=== PATIENT | female | born 1940 | race Caucasian/White ===

== ENCOUNTER → 2017-01-08 | Outpatient (CLI) | payer OTHER | LOC: FIMAGING 08:52 | PROVIDERS: ATTEND Family Medicine | DX: Z12.31 Encounter for screening mammogram for malignant neoplasm of breast (principal) | CPT/HCPCS: G0202 ==

== ENCOUNTER 2017-02-22 11:52 | Emergency (ER) | payer OTHER ==
[2017-02-22 12:02] VITALS: TEMP 97.7
--- NOTE | 2017-02-22 12:11 | CPEKG ---
Heart Rate: 98 RR Interval: 612 P-R Interval: 144 QRSD Interval: 92 QT Interval: 348 QTC Interval: 445 P Courtland: 70 QRS Courtland: 75 T Wave Courtland: 25 EKG Severity - ABNORMAL ECG - EKG Impression: SINUS RHYTHM EKG Impression: VENTRICULAR PREMATURE COMPLEX EKG Impression: LEFT ATRIAL ABNORMALITY EKG Impression: PROBABLE LEFT VENTRICULAR HYPERTROPHY Electronically Signed By: Ismael Aj 22-Feb-2017 15:57:04
[2017-02-22] MEDS ORDERED: NS 1,000 ML IV ONE (13:08)
--- NOTE | 2017-02-22 13:08 | EDPHY ---
H & P Time Seen by Provider: 02/22/17 12:44 HPI/ROS: Chief complaint. Near syncope HPI. 76-year-old female presents emergency department with cough for 5 days. 4 days ago she was lightheaded and felt like she could pass out. It was better with sitting down. She has had similar symptoms previously occurring approximately 4 times per year with exercise but not with just working around the home. She also had never had multiple episodes on the same day though these lightheaded episodes occurred over about 1 hr every time she stood up. She has had no symptoms since. However she has had fever and chills and decreased appetite. Her is sick with similar symptoms. Her symptoms are worse in the evening. She has some right-sided chest discomfort that she describes as "it hurts ". No radiation. Hurts to move, deep breathe and is constant but only occurring at night. It is not occurring now. ROS Constitutional. Fever and chills Eyes. no problems with vision ENT. Congestion Cardiovascular. Right-sided chest pain at night Respiratory. Cough Abdominal. no abdominal pain, no nausea/vomiting, no diarrhea . no problems urinating MS. no calf pain/swelling, no neck/back pain, no joint pain Skin. no rash Lymph. no swollen glands Neuro. no headache, no dizziness, no difficulty walking or with speech Past Medical/Surgical History: Hypertension, bladder surgery, hysterectomy Social History: , nonsmoker, no alcohol Smoking Status: Never smoked Physical Exam: General Appearance: Alert pleasant well-developed female mild distress vital signs significant for heart rate of 99 Eyes: Pupils equal and round no pallor or injection. ENT, Mouth: Mucous membranes are moist. Respiratory: There are no retractions, lungs are clear to auscultation. Cardiovascular: Regular rate and rhythm. Gastrointestinal: Abdomen is soft and nontender, no masses, bowel sounds normal. Neurological: Awake and alert, sensory and motor exams grossly normal. Skin: Warm and dry, no rashes. Musculoskeletal: Neck is supple nontender. Extremities symmetrical, full range of motion. Psychiatric: Patient is oriented X 3, there is no agitation. Constitutional: Initial Vital Signs Temperature (C) 36.5 C 02/22/17 11:59 Heart Rate 99 02/22/17 11:59 Respiratory Rate 20 02/22/17 11:59 Blood Pressure 133/78 H 02/22/17 11:59 O2 Sat (%) 95 02/22/17 11:59 O2 Delivery Mode Room Air Allergies/Adverse Reactions: Sulfa (Sulfonamide Antibiotics) Allergy (Verified 02/22/17 11:56) Home Medications: Medication Instructions Recorded ASPIRIN 02/22/17 Atorvastatin Calcium 02/22/17 Azithromycin [Zithromax] 250 mg PO DAILY #6 tab 02/22/17 Lisinopril 02/22/17 RESTORIL 02/22/17 Vitamins And Supplements 02/22/17 Medical Decision Making - Diagnostics EKG Interpretation: EKG interpreted by me shows normal sinus rhythm normal interval and axis. QRS is otherwise unremarkable. There is no significant ST elevation or depression. There is 1 PVC. The rate is 98 Imaging Results: Imaging Impressions Chest X-Ray 02/22/17 13:09 Impression: Mild underlying bronchitis. Possible early early infiltrate in the right middle lobe. Recommend following to clear. Procedures: IV normal saline, monitor ED Course/Re-evaluation: Re-evaluation 2:20 p.m.. Patient is stable. Patient, , and I discussed imaging, EKG, lab results. We discussed treatment plan including criteria for return importance of follow-up further evaluation. She expresses understanding and agreement. She is comfortable with this plan. Heart rate is still about 95 however she is only received about 50 mL as from her 1st IV normal saline bag Intravenous Rocephin On re-evaluation patient is stable. She feels well enough to go home. She is offered admission but feels well to be treated as an outpatient Differential Diagnosis: I considered acute coronary syndrome, pneumonia, influenza. - Data Points Laboratory Results: Laboratory Results 02/22/17 12:25 02/22/17 12:25 02/22/17 02/22/17 12:25 12:25 WBC 15.37 10^3/uL H 10^3/uL (3.80-9.50) RBC 4.49 10^6/uL 10^6/uL (4.18-5.33) Hgb 13.5 g/dL g/dL (12.6-16.3) Hct 40.3 % % (38.0-47.0) MCV 89.8 fL fL (81.5-99.8) MCH 30.1 pg pg (27.9-34.1) MCHC 33.5 g/dL g/dL (32.4-36.7) RDW 12.4 % % (11.5-15.2) Plt Count 234 10^3/uL 10^3/uL (150-400) MPV 9.8 fL fL (8.7-11.7) Neut % (Auto) 75.6 % H % (39.3-74.2) Lymph % (Auto) 10.0 % L % (15.0-45.0) Dyer % (Auto) 13.4 % H % (4.5-13.0) Eos % (Auto) 0.1 % L % (0.6-7.6) Baso % (Auto) 0.4 % % (0.3-1.7) Nucleat RBC Rel Count 0.0 % % (0.0-0.2) Absolute Neuts (auto) 11.64 10^3/uL H 10^3/uL (1.70-6.50) Absolute Lymphs (auto) 1.53 10^3/uL 10^3/uL (1.00-3.00) Absolute Monos (auto) 2.06 10^3/uL H 10^3/uL (0.30-0.80) Absolute Eos (auto) 0.01 10^3/uL L 10^3/uL (0.03-0.40) Absolute Basos (auto) 0.06 10^3/uL 10^3/uL (0.02-0.10) Absolute Nucleated RBC 0.00 10^3/uL 10^3/uL (0-0.01) Immature Gran % 0.5 % % (0.0-1.1) Immature Gran # 0.07 10^3/uL 10^3/uL (0.00-0.10) Sodium 140 mEq/L mEq/L (135-145) Potassium 3.6 mEq/L mEq/L (3.5-5.2) Chloride 102 mEq/L mEq/L (97-110) Carbon Dioxide 25 mEq/l mEq/l (22-31) Anion Gap 13 mEq/L mEq/L (8-16) BUN 14 mg/dL mg/dL (7-23) Creatinine 0.6 mg/dL mg/dL (0.6-1.0) Estimated GFR > 60 Glucose 111 mg/dL H mg/dL (70-100) Calcium 9.2 mg/dL mg/dL (8.5-10.4) Troponin I < 0.012 ng/mL ng/mL (0.000-0.034) Medications Given: Discontinued Medications Sodium Chloride (Ns) 1,000 mls @ 0 mls/hr IV EDNOW ONE; Wide Open PRN Reason: Protocol Stop: 02/22/17 13:09 Last Admin: 02/22/17 13:38 Dose: 1,000 mls Ceftriaxone Sodium/Dextrose (Rocephin 1 Gm (Premix)) 50 mls @ 100 mls/hr IV EDNOW ONE PRN Reason: Protocol Stop: 02/22/17 14:53 Last Admin: 02/22/17 14:52 Dose: 50 mls Departure - Departure Disposition: Home, Routine, Self-Care Clinical Impression: Pneumonia Qualifiers: Pneumonia type: due to unspecified organism Laterality: right Lung location: middle lobe of lung Qualified Code(s): J18.1 - Lobar pneumonia, unspecified organism Condition: Good Instructions: Community Acquired Pneumonia (ED) Additional Instructions: Drink plenty of fluids and stay hydrated. Ibuprofen 600 mg every 6 hr as needed for fever. Tylenol 1000 mg every 4- 6 hr as needed for fever. Zithromax is antibiotic. Return for worsening symptoms. Recheck in 2 days if not improving Referrals: Lillian Mcneil MD [Primary Care Provider] - 2-3 days, if not improved Prescriptions: Azithromycin [Zithromax] 250 mg PO DAILY #6 tab
[2017-02-22 13:15] LABS: PLATELET COUNT 234 10^3/uL (150-400)
[2017-02-22 13:39] VITALS: RESP 18
[2017-02-22 14:53] VITALS: BP 125/76; PULSE 93; O2SAT 95
== END 2017-02-22 15:35 | disposition home or self-care (01) ==
DX: J18.9 Pneumonia, unspecified organism (principal); I10 Essential (primary) hypertension; E86.9 Volume depletion, unspecified; Z79.82 Long term (current) use of aspirin
CPT/HCPCS: 71045; 93005; 96361; 96365; 99285; J0696

== ENCOUNTER → 2018-05-16 | Outpatient (CLI) | payer OTHER | LOC: BHFA 09:00 | PROVIDERS: ATTEND Internal Medicine Cardiovascular Disease | DX: R94.31 Abnormal electrocardiogram [ECG] [EKG] (principal); G45.9 Transient cerebral ischemic attack, unspecified | CPT/HCPCS: 78452; 93017; A9500 ==

== ENCOUNTER → 2018-06-07 | Outpatient (CLI) | payer OTHER ==
--- NOTE | 2018-06-07 16:46 | ECHO ---
[email or web address] [address] [address] Main: [phone] Echocardiography Examination Transthoracic Name: JAZMYNE PINTO MR#: [id number] Study Date: 06/07/2018 Study Time: 02:10 PM Date of : 1940 Age: 78 year(s) Height: 160 cm (63 in.) Weight: 52.62 kg (116 lb.) BSA: 1.53 m2 Gender: Female Examination: Echo Contrast: Image Quality: Adequate Rhythm: Heart Rate: BP: / Indication: Supraventricular Tachycardia Procedure Staff Referring Physician: Digester Operator Helper: Asha Rod [facility] Reading Physician: Jack Mcdaniel MD Requesting Provider: Ordering Physician: Richardson Miranda Indication: Supraventricular Tachycardia Measurements Chambers AV/MV Label Value Normal Value Label Value Normal Value LVOTd 1.7 cm (1.8cm - 2cm) AV PGmean 10 mmHg LVOT VTI 23.3 cm (18cm - 22cm) AV Vmax 1.99 m/s LVDd, 2D 3.6 cm (3.9cm - 5.3cm) ELIZABETH (VTI) 1.4 cm2 LVDs, 2D 2.3 cm (2.1cm - 4cm) MV E Vmax 0.7 m/s IVSd, 2D 1 cm (0.6cm - 1.1cm) MV A Vmax 1.01 m/s LVPWd, 2D 0.9 cm MV E/A 0.69 LVEF, 2D 66 % (54% - 74%) MV E/E' lateral 6.9 LVOT PGmean 3 mmHg MV E/E' septal 10.1 (0.45 - 1.25) LVOT Vmean 0.85 m/s MV DT 197 ms RVDd, 2D 3.3 cm (1.9cm - 3.8cm) MV E' septal 0.07 m/s LA Volume, BP 35 ml (22ml - 52ml) MV PHT 0.06 s LADs, 2D 2.9 cm (2.7cm - 3.8cm) MVA PHT 3.7 cm2 LAESV index, BP 22.9 ml/m2 MV E' lateral 0.1 m/s RA Area 12.8 cm2 MV E/E' mean 8.24 Additional Vessels MV PHT 60 ms Label Value Normal Value MV E' mean 0.08 m/s AoAsc 3.3 cm TV/PV AoRoot, 2D 2.8 cm (1.4cm - 2.6cm) Label Value Normal Value IVC 1.2 cm (1.2cm - 2.3cm) RA Pressure 5 mmHg Patient: JAZMYNE PINTO Study Date: 06/07/2018 Page 1 of 2 02:10 PM RVSP 32 mmHg TR Pmax 27 mmHg TR Vmax 2.58 m/s PV PGmax 4 mmHg PV Vmax, Caliper 1 m/s (0.6m/s - 0.9m/s) Conclusions The heart is structurally normal with age appropriate changes of the heart valves without significant regurgitation or stenosis. The patient is in sinus rhythm throughout most of the study. Incidentally noted were mutiple and frequent PAC's. Findings Left Ventricle: Left ventricle is normal in size. Normal global systolic left ventricular function. EF range is estimated at 60 % - 65 %. Left ventricle wall thickness is normal. There are no regional wall motion abnormalities. Left ventricular diastolic function parameters are normal. No LV hypertrophy. Right Ventricle: Normal size right ventricle. Right ventricular systolic function is normal. Left Atrium: The left atrium is normal in size. Right Atrium: The right atrium is normal in size. Mitral Valve: Mitral valve appears structurally normal. Mild mitral regurgitation. No mitral valve stenosis. There is minimal mitral thickening. Aortic Valve: Aortic leaflets are structurally normal. Trivial aortic regurgitation is present. There is trivial aortic stenosis. Aortic leaflets exhibit mild calcification. Tricuspid Valve: Tricuspid valve leaflets are structurally normal. Mild tricuspid regurgitation. No tricuspid valve stenosis. Right Ventricular systolic pressure is measured at 32 mmHg. Pulmonary artery pressure normal. Pulmonic Valve: Pulmonic leaflets are normal in appearance. No significant pulmonic valve regurgitation is evident. Aorta: The aortic root size in 2D measures 2.8 cm. The ascending aorta measures 3.3 cm. Aorta Measurements AoRoot, 2D is 2.8 cm. IVC: The inferior vena cava is normal in size. Exam Details Procedure Ordered: Echo Procedure Status: Routine study Image Quality: Adequate Facility Location: CVC/Recovery (No Signature Object) Patient: JAZMYNE PINTO Study Date: 06/07/2018 Page 2 of 2 02:10 PM [id number]
== END ==
LOC: FCP 13:47
PROVIDERS: ATTEND Internal Medicine Cardiovascular Disease
DX: I07.1 Rheumatic tricuspid insufficiency (principal); I34.0 Nonrheumatic mitral (valve) insufficiency

== ENCOUNTER 2018-07-01 06:57 | Observation (INO) | payer OTHER ==
[2018-07-01] MEDS ORDERED: NS 1,000 ML IV ONE (07:02)
[2018-07-01 07:43] LABS: PLATELET COUNT 213 10^3/uL (150-400)
[2018-07-01 07:52] LABS: INR 0.99 (0.83-1.16); PROTIME(PATIENT) 12.7 SEC (12.0-15.0)
[2018-07-01] MEDS ORDERED: LIDOCAINE 1% 300 MG/30 ML SDV ONE (08:11)
[2018-07-01] MEDS ORDERED: BUPIVACAINE 0.5% 30 ML SDV ONE (08:11)
[2018-07-01] MEDS ORDERED: HEPARIN 10,000 UNIT/10 ML MDV (1,000 UNIT/ML) ONE (08:11)
[2018-07-01] MEDS ORDERED: MIDAZOLAM 2 MG/2 ML VIAL IVP ONE (08:12)
[2018-07-01] MEDS ORDERED: ISOPROTERENOL HCL/D5W 0.2 MG/50 ML BAG IV ONE (08:12)
--- NOTE | 2018-07-01 08:12 | PDANEPAE ---
ANE History of Present Illness ep svt ANE Past Medical History - Cardiovascular History Hx Hypertension: Yes Hx Arrhythmias: Yes Hx Chest Pain: No Hx Coronary Artery / Peripheral Vascular Disease: No Hx CHF / Valvular Disease: No Hx Palpitations: No - Pulmonary History Hx COPD: No Hx Asthma/Reactive Airway Disease: No Hx Recent Upper Respiratory Infection: No Hx Oxygen in Use at Home: No Hx Sleep Apnea: Yes - Neurologic History Hx Cerebrovascular Accident: No Hx Seizures: No Hx Dementia: No - Endocrine History Hx Diabetes: No Hypothyroid: No Hyperthyroid: No Obesity: no - Renal History Hx Renal Disorders: No - Liver History Hx Hepatic Disorders: No Hepatic History Comment: elevated bili - Neurological & Psychiatric Hx Hx Neurological and Psychiatric Disorders: No ANE Review of Systems Review of Systems: - Exercise capacity Exercise capacity: >=4 METS ANE Patient History - Allergies Allergies/Adverse Reactions: Sulfa (Sulfonamide Antibiotics) Allergy (Verified 02/22/17 11:56) - Home Medications Home Medications: Aspirin [Aspirin 81mg (*)] 81 mg PO DAILY 06/24/18 [Last Taken 06/30/18] Atorvastatin Calcium [Lipitor 10 mg (*)] 10 mg PO DAILY 06/24/18 [Last Taken ] Estradiol [Estrace Vaginal (*)] 1 vanessa VG Q3D 06/24/18 [Last Taken Unknown] Herbals/Supplements -Info Only 1 ea PO DAILY 06/24/18 [Last Taken 06/30/18] Ibuprofen [Motrin (*)] 200 mg PO DAILY PRN 06/24/18 [Last Taken Unknown] Lisinopril/Hctz 20/12.5MG [Zestoretic/Prinzide 20/12.5MG (*)] 1 ea PO DAILY [Last Taken 06/30/18] Metoprolol Tartrate [Lopressor 25 mg (*)] 25 mg PO BID 06/24/18 [Last Taken ] - NPO status NPO Status: no food or drink >8 hours - Anes Hx Anes Hx: no prior problems - Smoking Hx Smoking Status: Never smoked ANE Labs/Vital Signs - Labs Result Diagrams: 07/01/18 07:20 07/01/18 07:20 - Vital Signs Height: 160.02 cm Weight: 52.163 kg ANE Physical Exam - Airway Mallampati Score: Class 2 Mouth exam: normal dental/mouth exam - Pulmonary Pulmonary: no respiratory distress - Cardiovascular Cardiovascular: regular rate and rhythym - ASA Status ASA Status: II ANE Anesthesia Plan Anesthesia Plan: general endotracheal anesthesia, GA w LMA
[2018-07-01] MEDS ORDERED: PROPOFOL 200 MG/20 ML VIAL ONE (08:23)
[2018-07-01] MEDS ORDERED: fentaNYL 100 MCG/2 ML INJ ONE (08:23)
[2018-07-01] MEDS ORDERED: DEXAMETHASONE 4 MG/ML VIAL ONE (08:24)
[2018-07-01] MEDS ORDERED: LIDOCAINE 2% 2 ML INJ ONE ×3 (08:24)
[2018-07-01] MEDS ORDERED: ONDANSETRON 4 MG/2 ML VIAL ONE (08:24)
--- NOTE | 2018-07-01 08:36 | PDGENHP ---
History & Physical Chief Complaint: SVT History of Present Illness: SVT with increasing frequency over the past several months, rates up to 231bpm Relevant Physical Exam: A&Ox4, no apparent distress, regular rate and rhythm, S1 , S2, pulses 2+ bilaterally, no edema Cardiorespiratory Assessment: Proceed with SVT ablation as planned for today
[2018-07-01] MEDS ORDERED: PHENYLEPHRINE 10 MG/ML SDV ONE (09:06)
[2018-07-01] MEDS ORDERED: ePHEDrine SULFATE 25 MG/5 ML SYR ONE (09:06)
[2018-07-01] MEDS ORDERED: ROCURONIUM 50 MG/5 ML VIAL ONE ×2 (11:19→11:20)
[2018-07-01] MEDS ORDERED: SUGAMMADEX SODIUM 200 MG/2 ML VIAL IVP ONE (11:53)
[2018-07-01] MEDS ORDERED: IBUPROFEN 200 MG TAB PO PRN (12:27)
--- NOTE | 2018-07-01 12:32 | EPPROC ---
Electrophysiology Procedure Note: ELECTROPHYSIOLOGIC STUDY AND CATHETER MEDIATED ABLATION RF+CRYO OF SLOW/FAST AV SAMARIA REENTRY TACHYCARDIA PROCEDURES PERFORMED: 90626-83 EP evaluation with RA/RV/LA pace/record, with arrhythmia induction 19252-32 EP evaluation with RA/RV pace record, insert/reposition catheter, with arrhythmia induction 39375 Intracardiac catheter ablation, SVT arrhythmogenic focus 75538 3D mapping Fluoroscopy INDICATION: SVT 230 BPM PROCEDURE: Catheters & Anesthesia: The patient arrived in the Electrophysiology Laboratory in the fasting state. The right clavicular region, right groin, and left groin area were prepped and draped in the usual sterile manner. Anesthesiologist Dr. Hank Dial administered general anesthesia. Appropriate non-invasive blood pressure, pulse oximetry and end-tidal CO2 monitoring was established. All catheters were placed percutaneously using the modified Seldinger technique , and advanced into position under fluoroscopic guidance. One #6 Austrian hexapolar non-deflectable electrode catheter was inserted into the right atrial appendage via the left femoral vein (2mm spacing; except the proximal ring which was 25cm from the tip used for unipolar recordings). One #7 Austrian deflectable octapolar electrode catheter was advanced to the His-bundle position via the left femoral vein (2mm spacing). One #7 Austrian deflectable quadrapolar catheter was advanced to the anteroseptal right ventricle via the right femoral vein. One #7 Austrian deflectable catheter with 10 pairs of electrodes was placed via the right femoral vein into the coronary sinus. Heparin was given to keep ACT > 200 s. Programmed stimulation was performed from the right atrium, right ventricle and coronary sinus (left atrium). Parahisian pacing demonstrated constant H-A interval with changing V-A intervals and stimulus-A intervals during capture and loss of capture of proximal RBB proving retrograde conduction over AV node. AVNRT was induced easily during infusion of isoproterenol 2-4 mcg/min. Ventricular extrastimuli delivered during tachycardia without altering antegrade His bundle activation did not advance next atrial potential, indicating that the tachycardia was not utilizing an accessory pathway for retrograde conduction. VA interval was 0 ms. Post entrainment of the tachycardia from the ventricle, there was VAHV response. Mapping of the right atrium and coronary sinus during AVNRT identified earliest atrial activation above the tendon of Mary at a level slightly posterior to the level of the His bundle, consistent with retrograde conduction over the fast AV samaria pathway. A #8 Austrian deflectable quadrapolar electrode catheter (2mm-5mm-2mm spacing) with 4 mm tip electrode and sensor for the 3D mapping Carto system was advanced to the right atrium. 3 D mapping of the inter-atrial septum and coronary sinus was performed and location of the AV node was marked. A Mobi sheath was used. RF applications were delivered to the region between the tricuspid annulus and the coronary sinus ostium, at the level of the upper edge of the coronary sinus ostium. Radiofrequency applications were also delivered along the roof of the proximal coronary sinus. Junctional rhythm occurred during all of the RF applications. However AVNRT continued to be inducible. 6 mm cryo catheter was placed and cryolesions delivered to the roof of CS and low midseptal TA. This rendered AVNRT non inducible and there was no conduction over slow AV samaria pathway. Ablation was difficult due to small triangle of Hammonds and funnel shaped CS ostium. Programmed stimulation was continued post ablation at baseline and during graded doses of isoproterenol upto 4mcg/min. Sustained AVNRT was not inducible. There were no echo beats. The catheters were removed. Sheaths were removed in the EP lab after applying subcutaneous purse string suture. The patient was transferred to the cardiovascular holding area in stable condition. There were no apparent complications. Results: A. Spontaneous Intervals: Pre ablation SCL 740 ms AH 65 ms HV 40 ms Post ablation SCL 630 ms AH 55 ms HV 40 ms B. Antegrade AV samaria function (decremental pacing) Pre ablation FPERP 360 ms 350 ms WBB CL 340 ms Post ablation FPERP 390 ms WBB CL 380 ms C. Retrograde AV samaria function (decremental pacing) Pre ablation FPERP 480 ms WBB CL 470 ms D. Arrhythmias: Sustained slow/fast AVNRT Cycle length 290 ms, AH interval 250 ms, LAST interval 40 ms VA interval 0 ms CONCLUSIONS 1. 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 ( Slow/fast AVNRT). 2. Successful ablation (RF+CRYO) of the slow AV samaria pathway with elimination of 1:1 antegrade conduction over the slow AV samaria pathway, all retrograde conduction over the slow AV samaria pathway and the inducibility of AVNRT. 3. Small triangle of Hammonds and funnel shaped CS ostium. 4. No complications. Patient Problems: Problems Problem Status Onset SVT (supraventricular tachycardia) Acute
[2018-07-01] MEDS ORDERED: fentaNYL 100 MCG/2 ML INJ IVP PRN (12:34)
[2018-07-01] MEDS ORDERED: ONDANSETRON 4 MG/2 ML VIAL IVP PRN (12:34)
[2018-07-01] MEDS ORDERED: LR 500 ML IV PRN (12:34)
[2018-07-01] MEDS ORDERED: ALBUTEROL 3 ML DEYVIAL IH PRN (12:34)
[2018-07-01] MEDS ORDERED: NALOXONE HCL 0.4 MG/ML INJ IVP PRN (12:34)
--- NOTE | 2018-07-01 12:35 | POSTANESTH ---
Post Anesthetic Evaluation Cardiovascular Status: Normal, Stable Respiratory Status: Normal, Stable Level of Consciousness/Mental Status: Can Participate in Eval Pain Control: Adequate, Prn Tx Ordered Nausea/Vomiting Control: Adequate, Prn Tx Ordered Complications Possibly Related to Anesthesia: None Noted
[2018-07-02 05:27] LABS: PLATELET COUNT 183 10^3/uL (150-400)
[2018-07-02 07:51] VITALS: BP 122/69
[2018-07-02] MEDS ORDERED: ATORVASTATIN CALCIUM 10 MG TAB PO SCH (09:00)
[2018-07-02] MEDS ORDERED: LISINOPRIL/HCTZ 20/12.5MG 1 EA TAB PO SCH (09:00)
[2018-07-02] MEDS ORDERED: ASPIRIN 81 MG CHEWABLE TAB PO SCH (09:00)
--- NOTE | 2018-07-02 10:21 | ASDISCHSUM ---
Discharge Information Plan Status:Home with No Needs Medically Cleared to Leave:07/02/2018 Discharge Date:07/02/2018 CM D/C Disposition:Home, Routine, Self-Care ADT D/C Disposition:Home, Routine, Self-Care Projected Discharge Date:07/02/2018 Transportation at D/C: Discharge Delay Reason: Follow-Up Date:07/02/2018 Discharge Slot: Final Diagnosis: Placement Information Patient Contact Information Contact Name:ROSARIO Relationship: Address:[address] [place] Work Phone: City:[facility] Phone: State/Zip Code:[place] [address] Email: Financial Information Financial Class:Medicare Primary Plan Desc:MEDICARE OUTPATIENT Primary Plan Number:[id number] Secondary Plan Desc:[facility] Secondary Plan Number:[id number] Assessment Information LACE LACE Length of stay for Answers: 1 day current admission Acuity / Level of Answers: No Care: Did the patient have an inpatient admission? Comorbidities - select Answers: Other Notes: HTN all that apply # of Emergency department Answers: 0 visits in the last 6 months Score: 2 Date Signed: 07/02/2018 10:20 AM Electronically Signed By:Shabnam Vu RN Intervention Information Intervention Type:*SUSHIL-Signed Date of Service:07/02/2018 09:56 AM Patient Type:Observation Staff Member:Samantha Velez Hours: Discipline: Severity: Comment:
--- NOTE | 2018-07-02 10:52 | GDS ---
[f rep st] DISCHARGE SUMMARY SUPERVISING ACROBATIC RIGGER: Sharif Grey MD. ADMISSION DIAGNOSIS: Supraventricular tachycardia. DISCHARGE DIAGNOSES: AV jose reentrant tachycardia. PROCEDURES PERFORMED DURING HOSPITALIZATION: 1. Electrocardiogram. 2. Echocardiogram. 3. Electrophysiology study. 4. AVNRT radiofrequency and cryoablation. HOSPITAL COURSE: The patient presented 07/01/2018, for SVT ablation in the setting of increased freq uency and symptoms associated with episodes of recurrent SVT. She underwent successful radiofrequenc y plus cryo-balloon ablation of the slow AV jose pathway with elimination of 1:1 antegrade conductio n over the slow AV jose pathway, with elimination of all retrograde conduction over the slow AV reji l pathway with elimination of inducibility of AVNRT. Of note, she did have a small triangle of Hammonds and a funnel-shaped CS ostium, making this ablation somewhat technically difficult. She had no intra -procedure complications and she has done very well overnight without recurrence of her SVT. She is appropriate and stable for discharge home today. PHYSICAL EXAMINATION: GENERAL: Alert and oriented x4. No apparent distress. VITAL SIGNS: Blood p ressure 122/69, heart rate 80, heart rate 80, respiratory rate 19, SpO2 98% on room air, temp 36.6 de grees Celsius. RESPIRATORY: Lungs are clear to auscultation without adventitious breath sounds. CA RDIAC: Regular rate and rhythm, S1, S2. ABDOMEN: Normoactive bowel sounds times all 4 quadrants. Soft to palpation. No masses or tenderness. SKIN: [place], warm and dry without cyanosis, clubbing, o r peripheral edema. EXTREMITIES: Bilateral pursestring sutures removed intact without evidence of h ematoma, redness, oozing, swelling, or warmth from these sites. Pulses are 2+ bilaterally. No edema . LABORATORY STUDIES: Drawn today demonstrate stable CBC and BMP compared to preprocedure crossed. Tr oponin is 0.995. Please note that slightly elevated troponin is to be expected post procedure. PROCEDURES PERFORMED DURING HOSPITALIZATION: Electrophysiology study and AVNRT ablation as mentioned above. Preliminary review of postprocedure echocardiogram demonstrates stable left ventricular syst olic function without new wall motion abnormalities or pericardial effusion noted. Electrocardiogram this morning demonstrates normal sinus rhythm with a normal KS interval and without new ST or T-wave abnormalities. DISCHARGE DISPOSITION: The patient will be discharged home in stable condition. She is under activi ty restrictions as below. DISCHARGE MEDICATIONS: Please see discharge medication reconciliation sheet for full detail. Please note that patient's metoprolol has been discontinued. She will continue her aspirin daily for at le ast the next 6 weeks and she will hold her estradiol for 4 weeks post procedure. DISCHARGE INSTRUCTIONS: 1. Post AVNRT ablation instructions were reviewed with the patient in detail. 2. We discussed activity restrictions including lifting no more than 10 pounds and avoidance of subm erged bathing for 10 days. 3. She will get up and walk around every 45 minutes for 45 days while awake. 4. We reviewed bleeding precautions, medication compliance, monitoring for signs and symptoms of inf ection and monitoring for sustained arrhythmia. At the time of discharge, the patient verbalized understanding regarding all discharge instructions. She understands that she requires a repeat ablation in the setting of her particular anatomy with a small triangle of Hammonds and a funnel-shaped CS ostium, there is high likelihood that she would require a permanent pacemaker at that time. In the meantime, we will proceed with watchful/waiting post abl ation. She has a followup visit scheduled in 4 weeks and she will contact [facility] with any new or concerning symptoms prior to her upcoming visit. Time spent on discharge, greater than 30 minutes. /[id number]/MODL
--- NOTE | 2018-07-02 13:10 | ECHO ---
[email or web address] [address] [address] Main: [phone] Echocardiography Examination Transthoracic Name: JAZMYNE PINTO MR#: [id number] Study Date: 07/02/2018 Study Time: 08:01 AM Date of : 1940 Age: 78 year(s) Height: 160 cm (63 in.) Weight: 52.16 kg (115 lb.) BSA: 1.53 m2 Gender: Female Examination: Echo Contrast: Image Quality: Adequate Rhythm: Heart Rate: BP: 122 mmHg/69 mmHg Indication: F/U Post EP Study Procedure Staff Referring Physician: Deck Engineer: Asha Rod [facility] Reading Physician: Syed Manley MD Requesting Provider: Ordering Physician: Sharif Grey MD Indication: F/U Post EP Study Measurements Chambers AV/MV Label Value Normal Value Label Value Normal Value LVOTd 1.8 cm (1.8cm - 2cm) AV PGmax 17 mmHg LVOT VTI 21.2 cm (18cm - 22cm) AV PGmean 9 mmHg LVDd, 2D 3.9 cm (3.9cm - 5.3cm) AV Vmax 2.04 m/s LVDs, 2D 2.6 cm (2.1cm - 4cm) ELIZABETH (VTI) 1.3 cm2 IVSd, 2D 1 cm (0.6cm - 1.1cm) MV E Vmax 1.01 m/s LVPWd, 2D 0.8 cm MV A Vmax 1.11 m/s LVEF, BP 64 % (55% - 70%) MV E/A 0.91 LVEF, 2D 61 % (54% - 74%) MV E/E' lateral 10.5 LVOT PGmean 2 mmHg MV E/E' septal 11.3 (0.45 - 1.25) LVOT Vmean 0.7 m/s MV DT 218 ms RVDd, 2D 3.2 cm (1.9cm - 3.8cm) MV E' septal 0.09 m/s LADs, 2D 3 cm (2.7cm - 3.8cm) MV PHT 0.06 s RA Area 15.6 cm2 MVA PHT 3.7 cm2 Additional Vessels MV E' lateral 0.1 m/s Label Value Normal Value MV E/E' mean 10.63 AoAsc 3.3 cm MV PHT 60 ms AoRoot, 2D 2.8 cm (1.4cm - 2.6cm) MV E' mean 0.1 m/s IVC 2 cm (1.2cm - 2.3cm) TV/PV Label Value Normal Value Patient: JAZMYNE PINTO Study Date: 07/02/2018 Page 1 of 3 08:01 AM RA Pressure 5 mmHg RVSP 37 mmHg TR Pmax 32 mmHg TR Vmax 2.85 m/s PV PGmax 2 mmHg PV Vmax, Caliper 0.68 m/s (0.6m/s - 0.9m/s) Conclusions Left Ventricle: Left ventricle is normal in size. The ejection fraction, measured by Simpsons method, is 64 %. Left ventricular diastolic function parameters are normal. Mitral Valve: Mild mitral regurgitation. Aortic Valve: Mild aortic regurgitation is present. Tricuspid Valve: Mild to moderate tricuspid regurgitation. Right Ventricular systolic pressure is measured at 37 mmHg. Pericardium: No pericardial effusion. Findings Left Ventricle: Left ventricle is normal in size. Normal global systolic left ventricular function. The ejection fraction, measured by Simpsons method, is 64 %. EF range is estimated at 60 % - 65 %. Left ventricle wall thickness is normal. There are no regional wall motion abnormalities. Left ventricular diastolic function parameters are normal. No LV hypertrophy. Right Ventricle: Normal size right ventricle. Right ventricular systolic function is normal. Left Atrium: The left atrium is normal in size. Right Atrium: The right atrium is normal in size. Mitral Valve: Mitral valve appears structurally normal. Mild mitral regurgitation. No mitral valve stenosis. There is mild mitral calcification. Aortic Valve: Aortic leaflets are structurally normal. Mild aortic regurgitation is present. There is trivial aortic stenosis. Aortic leaflets exhibit mild calcification. Tricuspid Valve: Tricuspid valve leaflets are structurally normal. Mild to moderate tricuspid regurgitation. No tricuspid valve stenosis. Right Ventricular systolic pressure is measured at 37 mmHg. Pulmonary artery pressure normal. Pulmonic Valve: Pulmonic leaflets are structurally normal. No significant pulmonic valve regurgitation is evident. Aorta: The aortic root size in 2D measures 2.8 cm. The ascending aorta measures 3.3 cm. Aorta Measurements AoRoot, 2D is 2.8 cm. Patient: JAZMYNE PINTO Study Date: 07/02/2018 Page 2 of 3 08:01 AM IVC: The inferior vena cava is normal in size. Pericardium: No pericardial effusion. Exam Details Procedure Ordered: Echo Procedure Status: Routine study Image Quality: Adequate Facility Location: Cardiac Echo 1 (No Signature Object) Patient: JAZMYNE PINTO Study Date: 07/02/2018 Page 3 of 3 08:01 AM [id number]
== END 2018-07-02 11:08 | disposition home or self-care (01) ==
LOC: F3E 06:57 → EDSTATUS 08:30 → F2W 08:35
PROVIDERS: ADMIT Internal Medicine Cardiovascular Disease; ATTEND Internal Medicine Cardiovascular Disease
DX: I47.1 Supraventricular tachycardia (principal); I10 Essential (primary) hypertension; G47.33 Obstructive sleep apnea (adult) (pediatric); Z88.2 Allergy status to sulfonamides
CPT/HCPCS: 93306; 93613; 93621; 93623; 93653; C1730; C1731; C1732; C1766; J1100; J1644; J2250; J2370; J2405; J2704; J3010